=== PATIENT | female | born 1965 | race Caucasian/White ===

== ENCOUNTER → 2025-08-21 | Outpatient (CLI) | payer BC ==
[~2025-08-21] MED LIST: ATOR1TAB21; GLIP2.5T46; METF500T13; OMEP40CA5; TRUL0.5I
== END ==
LOC: M ONCR 09:47
PROVIDERS: ATTEND General Practice
DX: C50.411 Malignant neoplasm of upper-outer quadrant of right female breast (principal); Z98.890 Other specified postprocedural states; Z17.1 Estrogen receptor negative status [ER-]; Z17.22 Progesterone receptor negative status; Z17.32 Human epidermal growth factor receptor 2 negative status; Z80.3 Family history of malignant neoplasm of breast; Z80.6 Family history of leukemia; Z80.0 Family history of malignant neoplasm of digestive organs; J30.89 Other allergic rhinitis; Z79.84 Long term (current) use of oral hypoglycemic drugs; Z79.85 Long-term (current) use of injectable non-insulin antidiabetic drugs; Z79.899 Other long term (current) drug therapy

== ENCOUNTER → 2025-09-12 | Outpatient (RCR) | payer BC | LOC: M ONCR 08-29 07:58 | PROVIDERS: ATTEND General Practice | DX: Z51.0 Encounter for antineoplastic radiation therapy (principal); C50.411 Malignant neoplasm of upper-outer quadrant of right female breast ==